=== PATIENT | female | born 1955 | race Caucasian/White ===

== ENCOUNTER → 2016-10-23 | Outpatient (CLI) | payer OTHER ==
--- NOTE | 2016-11-13 22:24 | RADIOLOGY REPORT PS360 ---
DIG MAMM-SCREEN KULDIP W/CAD CAD Screening ORDERING PHYSICIAN : Kashmir Bravo MD PATIENT AGE: 61 years GENDER: Female COMPARISON: Previous mammograms: 2010, December 2011, January 2013 INDICATION: Routine screening routine screening mammogram. 60-year-old TECHNIQUE: Standard CC and MLO images were obtained. R2 CAD reviewed. FINDINGS . generalized fatty replacement with no dominant mass norsuspicious calcifications in either breasts. No new areas of concern. Minor asymmetry appears stable No malignancy evident radiographically. Follow up in one year recommended. IMPRESSION: Stable mammogram. Follow up in one year. No areas of concern. IMPRESSION: BI-RADS CATEGORY: 1_Negative RECOMMENDED FOLLOWUP: 12M 12 MONTH FOLLOW-UP (A letter has been sent to the patient regarding results of the study.)
== END ==
LOC: RAD 14:00
DX: Z12.31 Encounter for screening mammogram for malignant neoplasm of breast (principal); N60.12 Diffuse cystic mastopathy of left breast; N60.11 Diffuse cystic mastopathy of right breast